=== PATIENT | male | born 1965 | race Caucasian/White ===

== ENCOUNTER → 2020-12-07 | Outpatient (CLI) | payer MEDICARE ==
[~2020-12-07] MED LIST: FLEXERIL 10 MG10 MG PO; GABAPENTIN300 MG PO; NITROSTAT0.4 MG SL; PRINIVIL10 MG PO; ULTRAM50 MG PO
[2020-12-07 19:14] LABS: RED BLOOD COUNT 5.07 M/UL (4.20-5.50); WHITE BLOOD COUNT 9.4 K/UL (4.5-11.0)
[2020-12-07 19:37] LABS: BUN/CREATININE RATIO 16 (0-10)
== END ==
LOC: LAB 18:34
PROVIDERS: Family Medicine
DX: I10 Essential (primary) hypertension (principal)
CPT/HCPCS: 80053; 84443; 85025

== ENCOUNTER → 2021-10-04 | Outpatient (CLI) | payer MEDICARE, OTHER | LOC: KOH-I 15:45 | DX: M47.812 Spondylosis without myelopathy or radiculopathy, cervical region (principal); M54.50 Low back pain, unspecified; M50.322 Other cervical disc degeneration at C5-C6 level; M51.16 Intervertebral disc disorders with radiculopathy, lumbar region; M51.17 Intervertebral disc disorders with radiculopathy, lumbosacral region | CPT/HCPCS: 72125; 72131 ==

== ENCOUNTER 2021-11-20 12:13 | Emergency (ER) | payer MEDICARE, OTHER ==
[2021-11-20] MEDS ORDERED: BENZONATATE200 MG PO (13:41)
== END 2021-11-20 13:48 | disposition home or self-care (01) ==
LOC: ER1 12:13
DX: R05.9 Cough, unspecified (principal); L03.115 Cellulitis of right lower limb; I11.9 Hypertensive heart disease without heart failure; F17.200 Nicotine dependence, unspecified, uncomplicated; Z95.5 Presence of coronary angioplasty implant and graft; Z88.8 Allergy status to other drugs, medicaments and biological substances
CPT/HCPCS: 71046; 99283

== ENCOUNTER 2021-12-28 13:23 | Emergency (ER) | payer MEDICARE ==
[~2021-12-28 13:23] MED LIST changes: +BENZONATATE200 MG PO
[2021-12-28 15:24] LABS: BUN/CREATININE RATIO 27 (0-10)
== END 2021-12-28 19:29 | disposition home or self-care (01) ==
LOC: ER1 13:23
PROVIDERS: Emergency Medicine
DX: I95.9 Hypotension, unspecified (principal); E86.0 Dehydration; I11.9 Hypertensive heart disease without heart failure; I25.10 Atherosclerotic heart disease of native coronary artery without angina pectoris; F17.210 Nicotine dependence, cigarettes, uncomplicated; Z95.5 Presence of coronary angioplasty implant and graft; Z88.8 Allergy status to other drugs, medicaments and biological substances
CPT/HCPCS: 71045; 80048; 82550; 82553; 84484; 93005; 99285; J7030

== ENCOUNTER → 2022-05-10 | Outpatient (CLI) | payer MEDICARE, OTHER | LOC: KOH-I 09:05 | DX: M25.512 Pain in left shoulder (principal) | CPT/HCPCS: 73030 ==